=== PATIENT | male | born 1995 | race Caucasian/White ===

== ENCOUNTER → 2021-08-08 16:17 | Outpatient (BNVA) | payer BC, SELFPAY | PROVIDERS: Family Provider Nurse Practitioner; PCP Nurse Practitioner Family; Visit Provider Nurse Practitioner Family | DX: Z20.822 Contact with and (suspected) exposure to COVID-19 (principal); J06.9 Acute upper respiratory infection, unspecified | CPT/HCPCS: 87635 ==

== ENCOUNTER 2022-03-11 08:40 | Emergency (ER) | payer SELFPAY ==
[2022-03-11 08:53] VITALS: BP 152/84; PULSE 77; RESP 15; O2SAT 99; BMI 33.3
--- NOTE | 2022-03-11 08:54 | USR_ITS ---
PROCEDURE INFORMATION: Exam: US Duplex Lower Extremity Veins, Bilateral Exam date and time: 03/11/2022 9:03 AM Age: 26 years old Clinical indication: Swelling (edema) of limb; Lower extremity, bilateral; Additional info: Leg swelling TECHNIQUE: Imaging protocol: Real-time Duplex ultrasound of the bilateral extremities with 2-D mosley scale, color Doppler flow and spectral waveform analysis with image documentation. Complete exam focused on the bilateral lower extremity veins. COMPARISON: No relevant prior studies available. FINDINGS: Right deep veins: Unremarkable. The common femoral, femoral, proximal profunda femoral and popliteal veins are patent without thrombus. Normal Doppler waveforms. Normal compressibility and/or augmentation response. Right superficial veins: Saphenofemoral junction is patent without thrombus. Left deep veins: Unremarkable. The common femoral, femoral, proximal profunda femoral and popliteal veins are patent without thrombus. Normal Doppler waveforms. Normal compressibility and/or augmentation response. Left superficial veins: Saphenofemoral junction is patent without thrombus. Soft tissues: Unremarkable. US/CV venous duplex [facility] [id number] IMPRESSION: No evidence of deep vein thrombosis.
--- NOTE | 2022-03-11 08:57 | W.ED.EXTPRO ---
HPI - Extremity Problem General: Chief complaint: Extremity Problem,Nontraumatic Stated complaint: Both legs, swelling, hurting Time Seen by Provider: 03/11/22 08:41 Source: patient Mode of arrival: ambulatory Limitations: no limitations History of Present Illness: 26-year-old male states over the last 3 to 4 days he has been having increasing lower extremity leg edema. He states it seems to get worse throughout the day and at night. He states the morning is not as bad but does have continued swelling through the night. Denies any shortness of breath had some slight pain denies any injuries denies any fever Associated symptoms: Deny chest pain, fever(s) or rash Review of Systems Const: Denies: fever(s), chills, body aches or change in appetite Eyes: Denies: blurry vision or eye discomfort ENMT: Denies: throat pain or dental pain Card: Denies: chest pain Resp: Denies: dyspnea GI: Denies: abdominal pain, nausea, vomiting or diarrhea : Denies: dysuria Musc: Reports: extremity swelling Skin/Breast: Denies: rash Neuro: Denies: headache(s) Psych: Denies: depression Michele/Lymph: Denies: easy bruising All/Imm: Denies: urticaria PFSH ED PFSH: Medical History (Updated 03/11/22 @ 10:09 by Renee Mason MD) No pertinent past medical history Social History (Updated 03/11/22 @ 08:58 by Renee Mason MD) Substance/Drug Use: never Physical Exam Const: COMMON NORMALS: no acute distress, patient oriented x3 and healthy appearing HENMT: COMMON NORMALS: normocephalic and atraumatic HEAD & SCALP: normocephalic and atraumatic Eye: COMMON NORMALS: Equal, round and reactive pupils present and EOMs intact bilaterally PUPIL: Yes Equal, round and reactive pupils present Neck/C-Spine: COMMON NORMALS: full ROM and supple Chest: COMMONS NORMALS: normal inspection of the chest and normal palpation of entire chest wall Resp: COMMON NORMALS: normal respiratory effort, No retractions, No use of accessory muscles and clear to auscultation bilaterally AUSCULTATION: clear to auscultation bilaterally Cardio: COMMON NORMALS: regular rate, regular rhythm and No murmurs present (Cardio) RATE: regular rate RHYTHM: regular rhythm GI: COMMON NORMALS: Normal to inspection, nondistended, normoactive bowel sounds present, Soft to palpation, non-tender and no masses PALPATION: Yes Soft to palpation Extremity: COMMON NORMALS: full ROM NARRATIVE EXTREMITY EXAM: Slight swelling to bilateral lower extremities distal pulses intact Neuro: COMMON NORMALS: patient oriented x3, moves all extremities and no focal motor deficits Psych: COMMON NORMALS: mental status grossly normal, Normal thought process present and cooperative THOUGHT PROCESS: Normal thought process present Skin: COMMON NORMALS: no rashes or lesions noted and no wounds GENERAL SKIN EXAM: no rashes or lesions noted Course Vital Signs: Vital signs: Vital Signs Pulse Rate 77 03/11/22 08:53 Respiratory Rate 15 03/11/22 08:53 Blood Pressure 152/84 03/11/22 08:53 Pulse Oximetry 99 03/11/22 08:53 MDM - Extremity (Nontraumatic) Medical Decision Making Patient presents with lower extremity edema patient's blood work along with ultrasound of his legs are normal he is to elevate his feet wear compression stockings walking follow-up with a primary care doctor he is return if worsening he understands agrees to plan. Lab Data : 03/11/22 09:28 03/11/22 09:28 Radiology Impressions Venous Duplex 03/11/22 08:54 IMPRESSION: No evidence of deep vein thrombosis. Laboratory Results WBC 4.9 10^3/uL (4.0-10.0) 03/11/22 09:28 RBC 4.92 10^6/uL (4.1-5.3) 03/11/22 09:28 Hgb 14.5 g/dL (11.7-16.6) 03/11/22 09:28 Hct 44.1 % (42.0-52.0) 03/11/22 09:28 MCV 89.6 fl (80-94) 03/11/22 09:28 MCH 29.5 pg (28.0-34.0) 03/11/22 09:28 MCHC 32.9 g/dL (30.0-36.0) 03/11/22 09:28 RDW 12.5 % (12.1-15.1) 03/11/22 09:28 Plt Count 193 10^3/cmm (130-400) 03/11/22 09:28 MPV 10.5 fL (7.4-10.4) H 03/11/22 09: Neut % (Auto) 60.8 % 03/11/22 09: Lymph % (Auto) 25.9 % 03/11/22: [place] % (Auto) 10.3 % 03/11/22: Eos % (Auto) 2.4 % 03/11/22: Baso % (Auto) 0.4 % 03/11/22: Neut # (Auto) 3.00 10^3/uL (1.8-7.7) 03/11/22: Lymph # (Auto) 1.3 10^3/uL (0.8-4.8) 03/11/22: [place] # (Auto) 0.5 10^3/uL (0.2-0.9) 03/11/22: Eos # (Auto) 0.1 10^3/uL (0.0-0.8) 03/11/22: Baso # (Auto) 0.0 10^3/uL (0.0-0.1) 03/11/22: Nucleated RBC % (auto) 0 % 03/11/22 Nucleated RBCs # 0.0 /100WBC 03/11/22: Sodium 141 mmol/L (136-145) 03/11/22: Potassium 4.1 mmol/L (3.5-5.1) 03/11/22: Chloride 106 mmol/L (98-107) 03/11/22: Carbon Dioxide 25 mmol/L (22-29) 03/11/22: Anion Gap 14.1 (5-19) 03/11/22: BUN 14 mg/dL (6-20) 03/11/22: Creatinine 0.7 mg/dL (0.7-1.2) 03/11/22: Glucose 97 mg/dL (65-115) 03/11/22 Calculated Osmolality 292 mOsm/kg (285-295) 03/11/22: Calcium 8.9 mg/dL (8.5-10.5) 03/11/22: Discharge Plan Discharge Patient Disposition: Home Clinical Impression: Lower extremity edema Prescriptions: No Action No Known Home Medications 0RF Discharge Orders: Discharge ED (Routine); Ordered 03/11/22 Ordered By: Renee Mason Referrals: Ginny Jon FNP-C [Primary Care Provider] - Discharge Diet: Advance as tolerated Discharge Activity: Resume usual activity Patient Instructions: Edema (ED) Coding Level of Care Code ED Avionics Electrical Engineer for Chg Fwd Exam Comprehensive
[2022-03-11 09:38] LABS: Basophils % 0.4 %; Eosinophils # 0.1 10^3/uL (0.0-0.8); Eosinophils % 2.4 %; Hematocrit 44.1 % (42.0-52.0); Hemoglobin 14.5 g/dL (11.7-16.6); Lymphocytes # 1.3 10^3/uL (0.8-4.8); Lymphocytes % 25.9 %; Mean Corpuscular HGB Conc 32.9 g/dL (30.0-36.0); Mean Corpuscular Hemoglobin 29.5 pg (28.0-34.0); Mean Corpuscular Volume 89.6 fl (80-94); Mean Platelet Volume 10.5 fL (7.4-10.4); Monocytes # 0.5 10^3/uL (0.2-0.9); Monocytes % 10.3 %; Neutrophils % 60.8 %; Nucleated Red Blood Cells % 0 %; Platelet Count 193 10^3/cmm (130-400); Red Blood Count 4.92 10^6/uL (4.1-5.3); Red Cell Distribution Width 12.5 % (12.1-15.1); White Blood Count 4.9 10^3/uL (4.0-10.0)
--- NOTE | 2022-03-11 10:02 | PC.NURSE ---
Patient unable to give urine sample, okay to give water to patient per Dr. Mason.
[2022-03-11 10:06] LABS: Anion Gap 14.1 (5-19); Blood Urea Nitrogen 14 mg/dL (6-20); Calcium 8.9 mg/dL (8.5-10.5); Carbon Dioxide 25 mmol/L (22-29); Chloride 106 mmol/L (98-107); Glomerular Filtration Rate 138.6 mL/min (90-130); Glucose 97 mg/dL (65-115); NT Pro B Type Natriuretic Pept 167 pg/mL (0-125); Osmolality Calculated 292 mOsm/kg (285-295); Potassium 4.1 mmol/L (3.5-5.1); Sodium 141 mmol/L (136-145)
[2022-03-11 10:19] LABS: Add Urine Microscopic? NO; Charge for UA Resulting for Rev
[2022-03-11 10:25] LABS: Urine Appearance Clear (CLEAR); Urine Color Straw (Yellow)
[2022-03-11 10:26] LABS: Bilirubin Urine Neg (Negative); Blood Urine Neg (Negative); Glucose Urine UA Norm (Normal); Ketones Urine Negative (Negative); Leukocyte Esterase Urine Negative (Negative); Nitrate Urine Negative (Negative); Protein Urine Neg (Negative); Sulfosalicylic Acid Urine Negative (Negative); Urobilinogen Urine Norm (Negative); pH Urine 8 (5-7)
[2022-03-11 10:34] VITALS: BP 134/72; PULSE 57; RESP 16; O2SAT 100
--- NOTE | 2022-03-13 13:01 | DCPLANNER ---
health sciences manager had message to speak with patient about getting established with a primary care physician. health sciences manager called patient, unable to speak with patient at this time.
== END 2022-03-11 10:36 | disposition home or self-care (01) ==
PROVIDERS: Emergency Provider Emergency Medicine; PCP Nurse Practitioner Family
DX: R60.0 Localized edema (principal)
CPT/HCPCS: 80048; 81003; 83880; 85025; 93970; 99283

== ENCOUNTER 2023-10-14 10:33 | Emergency (ER) | payer SELFPAY ==
[2023-10-14 10:42] VITALS: BP 158/84; PULSE 71; RESP 15; TEMP 36.6; O2SAT 100
[2023-10-14 11:48] LABS: Basophils % 0.4 %; Eosinophils # 0.1 10^3/uL (0.0-0.8); Eosinophils % 1.5 %; Hematocrit 50.4 % (37-53); Lymphocytes # 1.7 10^3/uL (0.8-4.8); Lymphocytes % 32.1 %; Mean Corpuscular HGB Conc 31.7 g/dL (30-55); Mean Corpuscular Hemoglobin 29.5 pg (27-33); Mean Platelet Volume 10.1 fL (7.4-10.4); Monocytes # 0.5 10^3/uL (0.2-0.9); Monocytes % 10.1 %; Neutrophils # 2.93 10^3/uL (1.8-7.7); Neutrophils % 55.7 %; Nucleated Red Blood Cells % 0 %; Platelet Count 237 10^3/cmm (157-399); Red Blood Count 5.42 10^6/uL (3.85-5.65); White Blood Count 5.26 10^3/uL (3.29-11.43)
--- NOTE | 2023-10-14 11:58 | XRR_ITS ---
PROCEDURE INFORMATION: Exam: XR Abdomen Exam date and time: 10/14/2023 12:00 PM Age: 27 years old Clinical indication: Abdominal pain; Patient HX: Blood in stool; Additional info: Abd pain TECHNIQUE: Imaging protocol: Radiologic exam of the abdomen. Views: Frontal supine view of the abdomen. 1 View. COMPARISON: No relevant prior studies available. FINDINGS: Gastrointestinal tract: Normal. No bowel dilation. Bones/joints: Unremarkable. XR/XR KUB [id number] IMPRESSION: No acute findings.
--- NOTE | 2023-10-14 12:05 | ED_ITS ---
HPI - GI Bleed 2 General: Chief complaint: GI Bleed Stated complaint: blood in stool Time Seen by Provider: 10/14/23 11:44 Source: patient Mode of arrival: ambulatory Limitations: no limitations History of Present Illness: 27-year-old male states he has had const ipation has been having hard stools states he has noticed last 2 days he been having rectal pain with the stools along with some slight right red blood with bowel movements. He denies any severe abdominal pain denies any fevers denies any large amount of blood denies any lightheadedness Associated symptoms: Reports abdominal pain; Denies chills, fever(s), headache(s), nausea, rash or vomiting Review of Systems 2 Const: Denies: fever(s), chills, body aches or change in appetite ENMT: Denies: throat pain or dental pain Card: Denies: chest pain Resp: Denies: dyspnea GI: Reports: abdominal pain, constipation and hematochezia; Denies: nausea, vomiting or diarrhea : Denies: dysuria Musc: Denies: neck pain or back pain Skin/Breast: Denies: rash Neuro: Denies: headache(s) PFSH ED 2 PFSH: Medical History (Updated 10/14/23 @ 12:32 by Renee Mason MD) No pertinent past medical history Social History (Updated 03/11/22 @ 08:58 by Renee Mason MD) Substance/Drug Use: never Physical Exam 2 Const: COMMON NORMALS: no acute distress, patient oriented x3 and healthy appearing HENMT: COMMON NORMALS: normocephalic and atraumatic HEAD & SCALP: n ormocephalic and atraumatic Neck/C-Spine: COMMON NORMALS: full ROM and supple Chest: COMMONS NORMALS: normal inspection of the chest Resp: COMMON NORMALS: normal respiratory effort Cardio: COMMON NORMALS: regular rate, regular rhythm and No murmurs present (Cardio) RATE: regular rate RHYTHM: regular rhythm GI: COMMON NORMALS: Normal to inspection, nondistended, normoactive bowel sounds present, Soft to palpation, non-tender and no masses PALPATION: Yes Soft to palpation OTHER: Does have pain with rectal exam no hemorrhoids noted slight amount of bright red blood Hemoccult positive Extremity: COMMON NORMALS: normal to inspection and full ROM Neuro: COMMON NORMALS: patient oriented x3, moves all extremities and no focal motor deficits Psych: COMMON NORMALS: mental status grossly normal, Normal thought process present and cooperative THOUGHT PROCESS: Normal thought process present Skin: COMMON NORMALS: no rashes or lesions noted and no wounds GENERAL SKIN EXAM: no rashes or lesions noted Course 2 Vital Signs: Vital signs: Vital Signs Temperature 97.8 F 10/14/23 10:42 Pulse Rate 71 10/14/23 10:42 Respiratory Rate 15 10/14/23 10:42 Blood Pressure 158/84 10/14/23 10:42 Pulse Oximetry 100 10/14/23 10:42 Oxygen Delivery Me thod Room Air 10/14/23 10:42 MDM - GI Bleed Medical Decision Making Patient presents here with likely an anal fissure causing blood in his stool from his constipation his blood count here is negative he is well-appearing he is to take MiraLAX he is stable for discharge he is follow-up with his PCP and return if worsening. Medical Records I reviewed the patient's medical records. Lab Data I reviewed the patient's lab results. 10/14/23 11:40 10/14/23 11:40 Laboratory Results WBC 5.26 10^3/uL (3.29-11.43) 10/14/23 11:40 RBC 5.42 10^6/uL (3.85-5.65) 10/14/23 11:40 Hgb 16.00 g/dL (11.27-16.99) 10/14/23 11:40 Hct 50.4 % (37-53) 10/14/23 11:40 MCV 93.0 fl (82-101) 10/14/23 11:40 MCH 29.5 pg (27-33) 10/14/23 11:40 MCHC 31.7 g/dL (30-55) 10/14/23 11:40 RDW 12.0 % (12.1-15.1) L 10/14/23 11:40 Plt Count 237 10^3/cmm (157-399) 10/14/23 11:40 MPV 10.1 fL (7.4-10.4) 10/14/23 11:40 Neut % (Auto) 55.7 % 10/14/23 11:40 Lymph % (Auto) 32.1 % 10/14/23 11:40 [place] % (Auto) 10.1 % 10/14/23 11:40 Eos % (Auto) 1.5 % 10/14/23 11:40 Baso % (Auto) 0.4 % 10/14/23 11:40 Neut # (Auto) 2.93 10^3/uL (1.8-7.7) 10/14/23 11:40 Lymph # (Auto) 1.7 10^3/uL (0.8-4.8) 10/14/23 11:40 [place] # (Auto) 0.5 10^3/uL (0.2-0.9) 10/14/23 11:40 Eos # (Auto) 0.1 10^3/uL (0.0-0.8) 10/14/23 11:40 Baso # (Auto) 0.0 10^3/uL (0.0-0.1) 10/14/23 11:40 Nucleated RBC % (auto) 0 % 10/14/23 11:40 Nucleated RBCs # 0.0 /100WBC 10/14/23 11:40 Sodium 140 mmol/L (136-145) 10/14/23 11:40 Potassium 3.8 mmol/L (3.5-5.1) 10/14/23 11:40 Chloride 103 mmol/L (98-107) 10/14/23 11:40 Carbon Dioxide 24 mmol/L (22-29) 10/14/23 11:40 Anion Gap 16.8 (5-19) 10/14/23 11:40 BUN 11 mg/dL (6-20) 10/14/23 11:40 Creatinine 0.7 mg/dL (0.7-1.2) 10/14/23 11:40 GFR Calculation 137.4 mL/min (90-130) H 10/14/23 11:40 Glucose 79 mg/dL (65-115) 10/14/23 11:40 Calculated Osmolality 288 mOsm/kg (285-295) 10/14/23 11:40 Calcium 9.7 mg/dL (8.5-10.5) 10/14/23 11:40 Total Bilirubin 0.2 mg/dL (0.15-1.2) 10/14/23 11:40 AST 15 U/L (0-40) 10/14/23 11:40 ALT 14 U/L (0-41) 10/14/23 11:40 Alkaline Phosphatase 85 U/L (40-130) 10/14/23 11:40 Total Protein 7.9 g/dL (6.6-8.7) 10/14/23 11:40 Albumin 4.7 g/dL (3.5-5.2) 10/14/23 11:40 Globulin 3.2 g/dL (1.3-4.6) 10/14/23 11:40 XR interpretation done by ED provider, pending radiology final review ED provider radiology interpretation(s): xr kub constipation Discharge Plan Discharge Patient Disposition: Home Clinical Impression: Blood in stool Constipation Qualifiers: Constipation type: other constipation type Qualified Code(s): K59.09 - Other constipation Condition: Stable Prescriptions: New Miralax 17 gram powder in packet 17 g PO DAILY PRN (Reason: constipation) Qty: 14 0RF Discharge Orders: Discharge ED (Routine); Ordered 10/14/23 Ordered By: Renee Mason Referrals: Ginny Jon FNP-C [Primary Care Provider] - 1-3 days Discharge Diet: Advance as tolerated Discharge Activity: Resume usual activity Patient Instructions: Constipation (ED), Anal Fissure (ED) Coding Level of Care Code ED Manager Biologics for Patricia Alvarez
[2023-10-14 12:07] LABS: Alanine Aminotransferase 14 U/L (0-41); Albumin Level 4.7 g/dL (3.5-5.2); Alkaline Phosphatase 85 U/L (40-130); Anion Gap 16.8 (5-19); Aspartate Amino Transferase 15 U/L (0-40); Blood Urea Nitrogen 11 mg/dL (6-20); Calcium 9.7 mg/dL (8.5-10.5); Carbon Dioxide 24 mmol/L (22-29); Chloride 103 mmol/L (98-107); Globulin 3.2 g/dL (1.3-4.6); Glomerular Filtration Rate 137.4 mL/min (90-130); Glucose 79 mg/dL (65-115); Osmolality Calculated 288 mOsm/kg (285-295); Potassium 3.8 mmol/L (3.5-5.1); Sodium 140 mmol/L (136-145); Total Bilirubin 0.2 mg/dL (0.15-1.2); Total Protein 7.9 g/dL (6.6-8.7)
[2023-10-14 12:43] VITALS: BP 158/84; PULSE 71; RESP 15; TEMP 36.6; O2SAT 100
== END 2023-10-14 12:43 | disposition home or self-care (01) ==
PROVIDERS: Emergency Provider Emergency Medicine; PCP Nurse Practitioner Family
DX: K92.1 Melena (principal); K59.09 Other constipation
CPT/HCPCS: 36415; 74018; 80053; 85025; 99284

== ENCOUNTER 2023-12-27 08:17 | Emergency (ER) | payer OTHER, SELFPAY ==
[2023-12-27] MEDS: tetanus-dipt-pertussis 0.5 mL SDV IM (08:42)
--- NOTE | 2023-12-27 09:07 | ED_ITS ---
HPI - Eye Problem General: Chief complaint: Eye Problems Stated complaint: metal in left eye Time Seen by Provider: 12/27/23 08:22 Source: patient Mode of arrival: ambulatory History of Present Illness: 28-year-old male presents emergency room with complaint of foreign body in the left cornea. He got it while working with metal yesterday. He was wearing safety glasses but a piece of the metal flew up got behind the glasses and into his eye he tolerated overnight but was worse this morning when he got up as redness and difficulty with vision and photosensitivity. 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 Fluorescein dye applied and under magnification can see a small foreign body attempted to remove under magnification with a cotton swab unable to remove. MDM - Eye Problem Medical Decision Making Given the central location recommend he be seen by ophthalmology. Dr. Teresa is on-call for ophthalmology contacted him he stated he would be happy to see him. Patient's was discharged from the emergency room after having his tetanus updated and giving an IM shot of Toradol for discomfort. Dr. Teresa will see him at his office immediately after he leaves here. Address was given to the patient. No radiology studies performed this visit Discharge Plan Discharge Patient Disposition: Home Clinical Impression: Corneal foreign body Condition: Stable Prescriptions: No Action polyethylene glycol 3350 [Miralax] 17 gram powder in packet 17 g PO DAILY PRN (Reason: constipation) Qty: 14 0RF Discharge Orders: Discharge ED (Routine); Ordered 12/27/23 Ordered By: David Hardwick Referrals: Bryn Teresa MD [Physician] - Ginny Jon FNP-C [Primary Care Provider] - Discharge Diet: Usual diet Discharge Activity: Increase activity as tolerated Patient Instructions: Opioid Safety, Pain Management Activity Restrictions/Additional Instructions: Thank you for choosing [facility] for your healthcare needs today. Please realize this is an emergency room and that we are providing you with a medical screening exam and this may not be complete and all inclusive of all the testing and or work up that you may need to determine your ailment or severity of your illness. It is very important that you follow up as instructed or that you return to the Emergency Department should you have concerns or if your condition changes or worsens in any way. On exam you are found to have a relatively large foreign body at the center of the left cornea. Recommend that after your discharge she will go directly to Dr. Teresa's office the physician/allergy/immunology. He will see you remove the metal fragment and any rust ring that is developed around it as well as provide aftercare for this injury. We have contacted his office and they are anticipating your arrival there shortly after you leave here. Coding Level of Care Code ED Owner Professional Engineer for Patricia Alvarez
[2023-12-27] MEDS: ketorolac 60 mg/2 mL INJ IM (09:09)
[2023-12-27] MEDS: tetracaine 0.5% Op Soln 4 mL Btl 1 DROP EYE-LEFT (09:10)
[2023-12-27] MEDS: fluorescein 1 mg Strip EYE-LEFT (09:10)
[2023-12-27 09:20] VITALS: BP 149/72; PULSE 88; RESP 16; O2SAT 99
[2023-12-27 09:27] VITALS: BP 149/72; PULSE 89; RESP 16; O2SAT 99
== END 2023-12-27 09:35 | disposition home or self-care (01) ==
PROVIDERS: Emergency Provider Family Medicine; PCP Nurse Practitioner Family
DX: T15.02XA Foreign body in cornea, left eye, initial encounter (principal); W44.D0XA Magnetic metal object unspecified, entering into or through a natural orifice, initial encounter; Z23 Encounter for immunization
CPT/HCPCS: 90471; 90715; 96372; 99284; J1885